=== PATIENT | male | born 1935 | race African-American/Black ===

== ENCOUNTER 2018-03-21 09:33 | Day surgery (SDC) | payer OTHER ==
[~2018-03-21] VITALS: Ht 30.5 cm; Wt 0.5 kg
[~2018-03-21 09:33] MED LIST: AGGR PO; ATOR20TA65 PO; FINA5TAB11 PO; LATA2.5D2 BOTHEYE; LISI1TAB13 PO; MULT-1146 PO; TIMO15DR12 BOTHEYE; [UNRECOGNIZED DRUG - OTHER] BOTHEYE
[2018-03-21] MEDS ORDERED: PHENYLEPHRINE HCL 10% OPHTH DROPS 5ML LEFTEYE ONE (10:00)
[2018-03-21] MEDS ORDERED: LACTATED RINGERS 1,000 ML IV SCH (10:00)
[2018-03-21] MEDS ORDERED: CYCLOPENTOLATE HCL 1% OPHTH DROPS 2ML LEFTEYE ONE (10:00)
[2018-03-21] MEDS ORDERED: TROPICAMIDE 1% OPHTH DROPS 15ML LEFTEYE ONE (10:00)
[2018-03-21] MEDS ORDERED: BALANCED SALT IRRIG SOLN COMB1 500ML OP NR (11:00)
[2018-03-21] MEDS ORDERED: ACETYLCHOLINE CHLORIDE INTRAOCULAR SOLUTION 1:100 ELECTROLYTE DILUENT IO ONE (11:21)
[2018-03-21] MEDS ORDERED: NEO/POLYMYX B SULF/DEXAMETH OPHTH OINT 3.5GM ONE (11:21)
[2018-03-21] MEDS ORDERED: TETRACAINE 0.5% OPHTH DROPS 4ML ONE (11:21)
[2018-03-21] MEDS ORDERED: LIDOCAINE HCL/PF 2% 20 MG/ML 10ML VIAL ONE (11:21)
[2018-03-21] MEDS ORDERED: BUPIVACAINE HCL/PF 0.75% (7.5MG/ML) 10ML ONE (11:21)
[2018-03-21] MEDS ORDERED: BALANCED SALT IRRIG SOLN 15ML ONE (11:21)
[2018-03-21] MEDS ORDERED: OFLOXACIN 0.3% OPHTH SOLN 5ML ONE (11:21)
[2018-03-21] MEDS ORDERED: CYCLOPENTOLATE HCL 1% OPHTH DROPS 2ML ONE (11:21)
[2018-03-21] MEDS ORDERED: LIDOCAINE HCL 2%/EPINEPHRINE 1:100,000 20 ML VIAL INFIL ONE (11:21)
[2018-03-21] MEDS ORDERED: PREDNISOLONE ACETATE 1% OPHTH DROPS 1ML ONE (11:21)
[2018-03-21] MEDS ORDERED: PHENYLEPHRINE HCL 10% OPHTH DROPS 5ML ONE (11:21)
[2018-03-21] MEDS ORDERED: TROPICAMIDE 1% OPHTH DROPS 15ML ONE (11:21)
[2018-03-21] MEDS ORDERED: LIDOCAINE HCL/PF 1% 10 MG/ML 5ML VIAL ONE (13:29)
[2018-03-21] MEDS ORDERED: FENTANYL CITRATE/PF 50MCG/ML 2ML VIAL IV PRN (13:45)
[2018-03-21] MEDS ORDERED: HYALURONATE SODIUM 14 MG/ML 0.85ML SYRINGE IO ONE ×2 (14:05→14:16)
== END 2018-03-21 15:55 | disposition home or self-care (01) ==
LOC: OR 09:33
PROVIDERS: ATTEND Ophthalmology
DX: H25.012 Cortical age-related cataract, left eye (principal); N40.0 Benign prostatic hyperplasia without lower urinary tract symptoms; I10 Essential (primary) hypertension; Z86.73 Personal history of transient ischemic attack (TIA), and cerebral infarction without residual deficits; E11.9 Type 2 diabetes mellitus without complications; M17.10 Unilateral primary osteoarthritis, unspecified knee; Z98.890 Other specified postprocedural states; Z79.899 Other long term (current) drug therapy; Z79.82 Long term (current) use of aspirin; E78.00 Pure hypercholesterolemia, unspecified
CPT/HCPCS: 66982; 82962; J1120; J3490; J7120; V2632

== ENCOUNTER 2018-05-30 08:51 | Inpatient (IN) | payer OTHER ==
[~2018-05-30] VITALS: Ht 182.9 cm; Wt 106.6 kg
[2018-05-30] MEDS ORDERED: TETRACAINE 0.5% OPHTH DROPS 4ML OP ONE (09:15)
[2018-05-30] MEDS ORDERED: ACETAZOLAMIDE SODIUM 500MG/VIAL IV ONE (09:15)
[2018-05-30 09:58] LABS: BASOPHILS % 0.7 % (0.0-2.0); EOSINOPHILS % 4.4 % (0.0-5.0); HEMOGLOBIN. 11.6 g/dL (14.0-18.0); LYMPHOCYTES % 36.2 % (20.0-50.0); MEAN CORPUSCULAR HEMOGLOBIN 29.4 pg (28.0-32.0); MEAN PLATELET VOLUME 7.8 fl (7.4-10.4); MONOCYTES % 10.9 % (2.0-8.0); NEUTROPHILS % 47.8 % (40.0-76.0); PLATELET 143 x1000/uL (130-400); RED BLOOD CELL COUNT 3.96 mill/uL (4.7-6.1); RED CELL DISTRIBUTION WIDTH 14.5 % (11.6-14.6)
[2018-05-30 10:06] LABS: INR 1.1; PROTHROMBIN TIME 10.7 sec (9.1-11.1)
[2018-05-30 10:09] LABS: CHLORIDE 107 mEq/L (98-107)
[2018-05-30] MEDS ORDERED: PREDNISOLONE ACETATE 1% OPHTH DROPS 1ML ONE (10:48)
[2018-05-30] MEDS ORDERED: BUPIVACAINE HCL/PF 0.75% (7.5MG/ML) 10ML ONE (10:48)
[2018-05-30] MEDS ORDERED: CIPROFLOXACIN 0.3% OPHTH SOLN 2.5ML ONE (10:48)
[2018-05-30] MEDS ORDERED: BALANCED SALT IRRIG SOLN 15ML ONE (10:48)
[2018-05-30] MEDS ORDERED: TETRACAINE 0.5% OPHTH DROPS 4ML ONE (10:48)
[2018-05-30] MEDS ORDERED: NEO/POLYMYX B SULF/DEXAMETH OPHTH OINT 3.5GM ONE (10:48)
[2018-05-30] MEDS ORDERED: LIDOCAINE HCL 2%/EPINEPHRINE 1:100,000 20 ML VIAL INFIL ONE (10:48)
[2018-05-30 10:50] VITALS: BP 133/63
[2018-05-30 11:00] VITALS: BP 133/63
[2018-05-30] MEDS ORDERED: ATOR10TA69 MT (12:18)
[2018-05-30] MEDS ORDERED: METH50TA5 MT (12:18)
[2018-05-30] MEDS ORDERED: METF500T MT (12:18)
[2018-05-30] MEDS ORDERED: DORZ10DR8 EACHEYE (12:18)
[2018-05-30] MEDS ORDERED: ASPI-1079 PO (12:18)
[2018-05-30] MEDS ORDERED: KETO5DRO80 EACHEYE (12:26)
[2018-05-30] MEDS ORDERED: PRED5DRO EACHEYE (12:26)
[2018-05-30] MEDS ORDERED: DORZ10DR12 OP (12:26)
[2018-05-30] MEDS ORDERED: MIDAZOLAM HCL 2 MG/2 ML VIAL ONE (14:23)
[2018-05-30] MEDS ORDERED: PROPOFOL 200MG/20ML VIAL IV ONE (14:23)
[2018-05-30] MEDS ORDERED: LIDOCAINE HCL/PF 1% 10 MG/ML 5ML VIAL ONE (14:24)
[2018-05-30] MEDS ORDERED: HYALURONATE SODIUM 14 MG/ML 0.85ML SYRINGE IO ONE (14:40)
[2018-05-30] MEDS ORDERED: SODIUM CHLORIDE 0.9% 1,000 ML IV ONE (14:50)
[2018-05-30] MEDS ORDERED: HYDROMORPHONE HCL/PF 2MG/ML CPJ IV PRN (15:00)
[2018-05-30] MEDS ORDERED: ONDANSETRON HCL 4MG/2ML INJ IV PRN (15:00)
[2018-05-30 16:00] VITALS: BP 130/73
[2018-05-30 16:49] VITALS: BP 130/73
== END 2018-05-30 17:25 | disposition home or self-care (01) | DRG 117 ==
LOC: ER 08:51 → ENRESERV 10:18 → 6EST 11:11
PROVIDERS: ADMIT Ophthalmology; ATTEND Ophthalmology
PROC: 08BD3ZZ Excision of Left Iris, Percutaneous Approach (ICD-10-PCS; 2018-05-30)
PROC: 08133Z4 Bypass Left Anterior Chamber to Sclera, Percutaneous Approach (ICD-10-PCS; principal; 2018-05-30 14:30)
DX: H40.10X0 Unspecified open-angle glaucoma, stage unspecified (principal); E78.00 Pure hypercholesterolemia, unspecified; E11.9 Type 2 diabetes mellitus without complications; I10 Essential (primary) hypertension; Z94.7 Corneal transplant status; Z98.42 Cataract extraction status, left eye; Z86.73 Personal history of transient ischemic attack (TIA), and cerebral infarction without residual deficits; Z79.82 Long term (current) use of aspirin; Z79.899 Other long term (current) drug therapy
CPT/HCPCS: 36415; 71045; 93005; 96374; 99285; J1120; J2250; J2704; J3490

== ENCOUNTER 2019-05-01 11:26 | Day surgery (SDC) | payer MEDICARE ==
[~2019-05-01] VITALS: Ht 182.9 cm; Wt 107.0 kg
[~2019-05-01 11:26] MED LIST changes: +ASPI-1079 PO; +ATOR10TA69 MT; +DORZ10DR12 OP; +DORZ10DR8 EACHEYE; +KETO5DRO80 EACHEYE; +METF500T MT; +METH50TA5 MT; +PRED5DRO EACHEYE
[2019-05-01 12:00] VITALS: BP 131/71
[2019-05-01] MEDS ORDERED: PROPOFOL 200MG/20ML VIAL IV ONE (12:39)
[2019-05-01] MEDS ORDERED: TRIAMCINOLONE ACETONIDE 40MG/ML 1ML VIAL ONE (13:02)
[2019-05-01] MEDS ORDERED: BALANCED SALT IRRIG SOLN 15ML ONE (15:00)
[2019-05-01] MEDS ORDERED: TETRACAINE 0.5% OPHTH DROPS 4ML ONE (15:00)
[2019-05-01] MEDS ORDERED: PHENYLEPHRINE HCL 2.5% OPHTH DROPS 2ML ONE (15:00)
[2019-05-01] MEDS ORDERED: CIPROFLOXACIN 0.3% OPHTH SOLN 2.5ML ONE (15:00)
[2019-05-01] MEDS ORDERED: BUPIVACAINE HCL/PF 0.75% (7.5MG/ML) 10ML ONE (15:00)
[2019-05-01] MEDS ORDERED: LIDOCAINE HCL/PF 2% 20 MG/ML 10ML VIAL ONE (15:00)
[2019-05-01] MEDS ORDERED: PREDNISOLONE ACETATE 1% OPHTH DROPS 5ML ONE (15:00)
[2019-05-01] MEDS ORDERED: LIDOCAINE HCL 2%/EPINEPHRINE 1:100,000 20 ML VIAL INFIL ONE (15:00)
== END 2019-05-01 15:30 | disposition home or self-care (01) ==
LOC: ER 11:26 → EDBEDREQ 11:52 → OR 12:00 → ENRESERV 12:51 → OR 15:30 → CMPBEDREQ 05-02 05:57
PROVIDERS: ATTEND Ophthalmology
DX: H59.89 Other postprocedural complications and disorders of eye and adnexa, not elsewhere classified (principal); H34.8122 Central retinal vein occlusion, left eye, stable; H40.10X0 Unspecified open-angle glaucoma, stage unspecified; Z79.82 Long term (current) use of aspirin; Z79.899 Other long term (current) drug therapy; Z72.89 Other problems related to lifestyle; Z80.2 Family history of malignant neoplasm of other respiratory and intrathoracic organs
CPT/HCPCS: 66183; C1783; J2704; J3301; J3490